=== PATIENT | female | born 1955 | race Two or more races ===

== ENCOUNTER 2018-08-28 11:57 | Inpatient (IN) | payer OTHER ==
[~2018-08-28] VITALS: Ht 157.5 cm; Wt 71.2 kg
[2018-09-13] MEDS ORDERED: [UNRECOGNIZED DRUG - OTHER] PO (13:44)
[2018-09-13] MEDS ORDERED: EMBREL PO (13:45)
[2018-09-13] MEDS ORDERED: [UNRECOGNIZED DRUG - OTHER] PO (13:46)
[2018-09-13] MEDS ORDERED: PREDISONE PO (13:47)
[2018-09-13] MEDS ORDERED: ZOCOR20 MG PO (13:47)
[2018-09-13] MEDS ORDERED: ISORBIDE PO (13:47)
[2018-09-13] MEDS ORDERED: FOLGARD TABLET1 EACH PO (13:48)
[2018-09-13] MEDS ORDERED: IBESARTAN PO (13:49)
[2018-09-13] MEDS ORDERED: PEPCID40 MG PO (13:49)
[2018-09-13] MEDS ORDERED: NORVASC5 MG PO (13:49)
[2018-09-13] MEDS ORDERED: PLAVIX75 MG PO (13:50)
[2018-09-13] MEDS ORDERED: GABAPENTIN400 MG PO (13:50)
[2018-09-13] MEDS ORDERED: NITROSTAT0.3 MG SL (13:51)
[2018-09-13] MEDS ORDERED: CLONAZEPAM1 M1 PO (13:51)
[2018-09-24] MEDS ORDERED: ISOSORBIDE MONO60 MG PO (09:52)
[2018-09-24] MEDS ORDERED: NABUMETONE750 MG PO (09:52)
[2018-09-24] MEDS ORDERED: AVAPRO300 MG PO (09:53)
[2018-09-24] MEDS ORDERED: PREDNISONE5 M1 PO (09:54)
[2018-09-24] MEDS ORDERED: ENBREL25 MG/0.5 (09:55)
[2018-09-24] MEDS ORDERED: HYDROXYCHLOROQ200 MG PO (09:57)
[2018-09-27] MEDS ORDERED: PERCOCET 5-3251 EACH PO (16:58)
[2018-09-27] MEDS ORDERED: INTESTINEX680 M1 PO (16:58)
== END 2018-09-27 17:53 | disposition home or self-care (01) | DRG 330 ==
LOC: SURH 09-24 06:00 → O/R 09-24 06:00 → SURH 09-24 07:00
PROVIDERS: Urology; ADMIT Surgery
PROC: 0DJD8ZZ Inspection of Lower Intestinal Tract, Via Natural or Artificial Opening Endoscopic (ICD-10-PCS; 2018-09-24)
PROC: 0DTN4ZZ Resection of Sigmoid Colon, Percutaneous Endoscopic Approach (ICD-10-PCS; principal; 2018-09-24 07:00)
PROC: 0T788DZ Dilation of Bilateral Ureters with Intraluminal Device, Via Natural or Artificial Opening Endoscopic (ICD-10-PCS; 2018-09-24 07:00)
DX: K57.20 Diverticulitis of large intestine with perforation and abscess without bleeding (principal); N32.1 Vesicointestinal fistula; N28.89 Other specified disorders of kidney and ureter; I25.10 Atherosclerotic heart disease of native coronary artery without angina pectoris; I10 Essential (primary) hypertension; M06.89 Other specified rheumatoid arthritis, multiple sites; K66.0 Peritoneal adhesions (postprocedural) (postinfection)

== ENCOUNTER 2018-09-10 10:29 | Outpatient (CLI) | payer OTHER | END 2018-09-10 16:39 | disposition home or self-care (01) | LOC: LAB 10:29 | DX: N30.00 Acute cystitis without hematuria (principal) ==